=== PATIENT | female | born 1985 | race Caucasian/White ===

== ENCOUNTER 2017-03-30 08:07 | Emergency (ER) | payer SELFPAY ==
[~2017-03-30] VITALS: Ht 157.5 cm; Wt 69.5 kg
[2017-03-30 08:14] VITALS: Ht 157.5 cm; Wt 69.5 kg
[2017-03-30] MEDS ORDERED: CYCL-319 PO (08:49)
[2017-03-30] MEDS ORDERED: NAPR-260 PO (08:49)
[2017-03-30] MEDS ORDERED: HYDR-906 PO (08:49)
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
== END 2017-03-30 09:48 | disposition home or self-care (01) ==
LOC: FTE 08:07
DX: M54.6 Pain in thoracic spine (principal)
CPT/HCPCS: 99284